=== PATIENT | male | born 1995 | race Hispanic/Latino ===

== ENCOUNTER 2017-06-23 07:33 | Emergency (ER) | payer OTHER ==
[~2017-06-23] VITALS: Ht 170.2 cm; Wt 69.0 kg
[2017-06-23] MEDS ORDERED: TAMIFLU75 MG PO (09:36)
[2017-06-23 09:51] VITALS: BP 124/71
== END 2017-06-23 09:42 | disposition home or self-care (01) ==
LOC: EME 07:33
PROVIDERS: Emergency Medicine
DX: J10.1 Influenza due to other identified influenza virus with other respiratory manifestations (principal); R50.9 Fever, unspecified; J02.9 Acute pharyngitis, unspecified
CPT/HCPCS: 71046; 87502; 87651 90; 99281; 99285